=== PATIENT | female | born 1970 | race Two or more races ===

== ENCOUNTER 2022-04-26 21:54 | Emergency (ER) | payer OTHER ==
[~2022-04-26] VITALS: Ht 165.1 cm; Wt 149.7 kg
[2022-04-27] MEDS ORDERED: INTESTINEX680 M1 PO (11:11)
[2022-04-27] MEDS ORDERED: METRONIDAZOLE500 MG PO (11:11)
[2022-04-27] MEDS ORDERED: CIPRO500 MG PO (11:11)
== END 2022-04-27 11:50 | disposition home or self-care (01) ==
LOC: ER 21:54
DX: K57.92 Diverticulitis of intestine, part unspecified, without perforation or abscess without bleeding (principal)

== ENCOUNTER 2023-12-12 09:15 | Outpatient (CLI) | payer OTHER ==
[~2023-12-12 09:15] MED LIST: CIPRO500 MG PO; INTESTINEX680 M1 PO; METRONIDAZOLE500 MG PO
== END 2023-12-12 09:20 | disposition home or self-care (01) ==
LOC: SONOGRAMA 09:15
PROVIDERS: ATTEND Pathology Anatomic Pathology & Clinical Pathology
DX: D44.0 Neoplasm of uncertain behavior of thyroid gland (principal); E04.1 Nontoxic single thyroid nodule